=== PATIENT | male | born 1965 | race Caucasian/White ===

== ENCOUNTER 2020-10-19 17:55 | Emergency (ER) | payer BC ==
--- NOTE | 2020-10-19 18:19 | EDM.PDOC ---
ED HPI GENERAL MEDICAL PROBLEM - General Chief Complaint: Respiratory Problem Stated Complaint: CANT CATCH BREATH Time Seen by Provider: 10/19/20 18:00 Source of Information: Reports: Patient, Old Records, RN History Limitations: Reports: No Limitations - History of Present Illness INITIAL COMMENTS - FREE TEXT/NARRATIVE: 55 yo male is referred over from the walk-in clinic for SOB. Sx's have been present for about 5 days. Has not been seen for this before today. He states he's had this on and off in the past. He has not had a cough, chest pain, fever, leg pain/swelling, or wheezing. 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 He has lost about 25# over the past year or more, not intentional. He does have a cardiac hx. Onset: Gradual Onset Date: 10/14/20 Duration: Day(s): (5) Location: Reports: Chest Quality: Reports: Other (no pain) Severity: Mild Improves with: Reports: None Worsens with: Reports: None Context: Reports: Other (See HPI) Associated Symptoms: Reports: Other (fatigue) Treatments CONTENT MANAGER: Reports: Other (see below) (none) - Related Data Allergies Allergy/AdvReac Type Severity Reaction Status Date / Time No Known Allergies Allergy Verified 05/30/15 15:44 Home Meds: Home Meds Aspirin [Lisa Chewable Aspirin] 81 mg PO DAILY 10/19/20 [History] Cyclobenzaprine [Flexeril] 10 mg PO ASDIRECTED PRN 10/19/20 [History] Metoprolol Succinate [Toprol Xl] 50 mg PO DAILY 10/19/20 [History] atorvaSTATin [Lipitor] 40 mg PO DAILY 10/19/20 [History] lisinopriL [Lisinopril] 40 mg PO DAILY 10/19/20 [History] Past Medical History Cardiovascular History: Reports: Hypertension ED ROS GENERAL - Review of Systems Review Of Systems: See Below Constitutional: Reports: Fatigue. Denies: Fever, Chills, Diaphoresis HEENT: Reports: No Symptoms Respiratory: Reports: Shortness of Breath. Denies: Wheezing, Cough, Sputum, Hemoptysis Cardiovascular: Reports: No Symptoms. Denies: Chest Pain Endocrine: Reports: No Symptoms GI/Abdominal: Reports: No Symptoms : Reports: No Symptoms Musculoskeletal: Reports: No Symptoms Skin: Reports: No Symptoms Neurological: Reports: No Symptoms Psychiatric: Reports: No Symptoms ED EXAM, GENERAL - Physical Exam Exam: See Below Exam Limited By: No Limitations General Appearance: Alert, WD/WN, No Apparent Distress, Thin Eye Exam: Bilateral Eye: Normal Inspection, PERRL Ears: Normal External Exam, Normal Canal, Hearing Grossly Normal, Normal TMs Ear Exam: Bilateral Ear: Auricle Normal, Canal Normal, TM normal Nose: Normal Inspection, No Blood Throat/Mouth: Normal Inspection, Normal Lips, Normal Oropharynx, Normal Voice, No Airway Compromise Head: Atraumatic, Normocephalic Neck: Normal Inspection Respiratory/Chest: No Respiratory Distress, Lungs Clear, Normal Breath Sounds, No Accessory Muscle Use Cardiovascular: Regular Rate, Rhythm, No Edema, Tachycardia GI/Abdominal: Normal Bowel Sounds, Soft, Non-Tender, No Distention Back Exam: Normal Inspection. No: CVA Tenderness (R), CVA Tenderness (L) Extremities: Normal Inspection, Normal Range of Motion, Non-Tender, No Pedal Edema. No: Pedal Edema Neurological: Alert, Oriented, CN II-XII Intact, Normal Cognition, No Motor/Sensory Deficits Psychiatric: Normal Affect, Normal Mood Skin Exam: Warm, Dry, Intact, Normal Color, No Rash Course - Vital Signs Last Recorded V/S: Last Vital Signs Temp 36.1 C 10/19/20 18:05 Pulse 84 10/19/20 20:30 Resp 16 10/19/20 20:30 BP 127/82 10/19/20 20:30 Pulse Ox 100 10/19/20 20:30 - Orders/Labs/Meds Orders: Active Orders 24 hr Category Date Time Status Chest 2V [CR] Stat Exams 10/19/20 18:13 Taken EKG 12 Lead [EK] Routine Ther 10/19/20 19:02 Ordered Labs: Laboratory Tests 10/19/20 10/19/20 10/19/20 Range/Units 18:40 18:40 18:40 WBC 4.7 (3.2-10.1) x10-3/uL RBC 4.50 (3.90-5.90) x10(6)uL Hgb 15.2 (12.9-17.7) g/dL Hct 44.4 (38.3-50.1) % MCV 98.5 (80.8-98.7) fL MCH 33.8 H (27.0-33.3) pg MCHC 34.3 (28.7-35.3) g/dL RDW 13.9 (12.4-15.0) % Plt Count 233 (117-477) x10(3)uL D-Dimer, Quantitative 0.40 (0.0-0.59) mg/LFEU Sodium 141 (135-145) mmol/L Potassium 4.6 (3.5-5.3) mmol/L Chloride 103 (100-110) mmol/L Carbon Dioxide 22 (21-32) mmol/L BUN 44 H D (7-18) mg/dL Creatinine 1.8 H (0.70-1.30) mg/dL Est Cr Clr Drug Dosing TNP Estimated GFR (MDRD) 39 L (>60) BUN/Creatinine Ratio 24.4 H (9-20) Glucose 139 H (80-116) mg/dL Hemoglobin A1c (<5.7) % Calcium 8.5 L (8.6-10.2) mg/dL Total Bilirubin 1.0 (0.1-1.3) mg/dL AST 332 H* D (5-25) IU/L ALT 195 H* D (12-36) U/L Alkaline Phosphatase 130 H (56-112) IU/L Troponin I (4.0-60.3) pg/mL Total Protein 6.9 (6.0-8.0) g/dL Albumin 3.6 (3.5-5.2) g/dL Globulin 3.3 g/dL Albumin/Globulin Ratio 1.1 TSH, Ultra Sensitive (0.36-3.74) IU/mL Urine Color (YELLOW) Urine Appearance (CLEAR) Urine pH (5.0-6.5) Ur Specific [place] (1.010-1.025) Urine Protein (NEGATIVE) mg/dL Urine Glucose (UA) (NORMAL) mg/dL Urine Ketones (NEGATIVE) mg/dL Urine Occult Blood (NEGATIVE) Urine Nitrite (NEGATIVE) Urine Bilirubin (NEGATIVE) Urine Urobilinogen (NEGATIVE) mg/dL Ur Leukocyte Esterase (NEGATIVE) Urine RBC (0-5) Urine WBC (0-5) Ur Squamous Epith Cells (NS,R,O) Urine Bacteria (NS) Urine Opiates Screen (NEGATIVE) Ur Buprenorphine Scrn (NEGATIVE) Ur Oxycodone Screen (NEGATIVE) Urine Methadone Screen (NEGATIVE) Ur Propoxyphene Screen (NEGATIVE) Ur Barbiturates Screen (NEGATIVE) Ur Tricyclics Screen (NEGATIVE) Ur Phencyclidine Scrn (NEGATIVE) Ur Amphetamine Screen (NEGATIVE) U Methamphetamines Scrn (NEGATIVE) U Benzodiazepines Scrn (NEGATIVE) U Cocaine Metab Screen (NEGATIVE) U Marijuana (THC) Screen (NEGATIVE) SARS-CoV-2 RNA (PRIETO) (NEGATIVE) 10/19/20 10/19/20 10/19/20 Range/Units 18:40 18:40 18:42 WBC (3.2-10.1) x10-3/uL RBC (3.90-5.90) x10(6)uL Hgb (12.9-17.7) g/dL Hct (38.3-50.1) % MCV (80.8-98.7) fL MCH (27.0-33.3) pg MCHC (28.7-35.3) g/dL RDW (12.4-15.0) % Plt Count (117-477) x10(3)uL D-Dimer, Quantitative (0.0-0.59) mg/LFEU Sodium (135-145) mmol/L Potassium (3.5-5.3) mmol/L Chloride (100-110) mmol/L Carbon Dioxide (21-32) mmol/L BUN (7-18) mg/dL Creatinine (0.70-1.30) mg/dL Est Cr Clr Drug Dosing Estimated GFR (MDRD) (>60) BUN/Creatinine Ratio (9-20) Glucose (80-116) mg/dL Hemoglobin A1c 5.7 (<5.7) % Calcium (8.6-10.2) mg/dL Total Bilirubin (0.1-1.3) mg/dL AST (5-25) IU/L ALT (12-36) U/L Alkaline Phosphatase (56-112) IU/L Troponin I 5.4 (4.0-60.3) pg/mL Total Protein (6.0-8.0) g/dL Albumin (3.5-5.2) g/dL Globulin g/dL Albumin/Globulin Ratio TSH, Ultra Sensitive 4.98 H (0.36-3.74) IU/mL Urine Color Yellow (YELLOW) Urine Appearance Clear (CLEAR) Urine pH 5.0 (5.0-6.5) Ur Specific [place] 1.020 (1.010-1.025) Urine Protein Negative (NEGATIVE) mg/dL Urine Glucose (UA) Normal (NORMAL) mg/dL Urine Ketones 15 H (NEGATIVE) mg/dL Urine Occult Blood Negative (NEGATIVE) Urine Nitrite Negative (NEGATIVE) Urine Bilirubin Negative (NEGATIVE) Urine Urobilinogen Normal (NEGATIVE) mg/dL Ur Leukocyte Esterase Negative (NEGATIVE) Urine RBC Not seen (0-5) Urine WBC 0-5 (0-5) Ur Squamous Epith Cells Few H (NS,R,O) Urine Bacteria Few H (NS) Urine Opiates Screen (NEGATIVE) Ur Buprenorphine Scrn (NEGATIVE) Ur Oxycodone Screen (NEGATIVE) Urine Methadone Screen (NEGATIVE) Ur Propoxyphene Screen (NEGATIVE) Ur Barbiturates Screen (NEGATIVE) Ur Tricyclics Screen (NEGATIVE) Ur Phencyclidine Scrn (NEGATIVE) Ur Amphetamine Screen (NEGATIVE) U Methamphetamines Scrn (NEGATIVE) U Benzodiazepines Scrn (NEGATIVE) U Cocaine Metab Screen (NEGATIVE) U Marijuana (THC) Screen (NEGATIVE) SARS-CoV-2 RNA (PRIETO) (NEGATIVE) 10/19/20 10/19/20 Range/Units 18:44 19:15 WBC (3.2-10.1) x10-3/uL RBC (3.90-5.90) x10(6)uL Hgb (12.9-17.7) g/dL Hct (38.3-50.1) % MCV (80.8-98.7) fL MCH (27.0-33.3) pg MCHC (28.7-35.3) g/dL RDW (12.4-15.0) % Plt Count (117-477) x10(3)uL D-Dimer, Quantitative (0.0-0.59) mg/LFEU Sodium (135-145) mmol/L Potassium (3.5-5.3) mmol/L Chloride (100-110) mmol/L Carbon Dioxide (21-32) mmol/L BUN (7-18) mg/dL Creatinine (0.70-1.30) mg/dL Est Cr Clr Drug Dosing Estimated GFR (MDRD) (>60) BUN/Creatinine Ratio (9-20) Glucose (80-116) mg/dL Hemoglobin A1c (<5.7) % Calcium (8.6-10.2) mg/dL Total Bilirubin (0.1-1.3) mg/dL AST (5-25) IU/L ALT (12-36) U/L Alkaline Phosphatase (56-112) IU/L Troponin I (4.0-60.3) pg/mL Total Protein (6.0-8.0) g/dL Albumin (3.5-5.2) g/dL Globulin g/dL Albumin/Globulin Ratio TSH, Ultra Sensitive (0.36-3.74) IU/mL Urine Color (YELLOW) Urine Appearance (CLEAR) Urine pH (5.0-6.5) Ur Specific [place] (1.010-1.025) Urine Protein (NEGATIVE) mg/dL Urine Glucose (UA) (NORMAL) mg/dL Urine Ketones (NEGATIVE) mg/dL Urine Occult Blood (NEGATIVE) Urine Nitrite (NEGATIVE) Urine Bilirubin (NEGATIVE) Urine Urobilinogen (NEGATIVE) mg/dL Ur Leukocyte Esterase (NEGATIVE) Urine RBC (0-5) Urine WBC (0-5) Ur Squamous Epith Cells (NS,R,O) Urine Bacteria (NS) Urine Opiates Screen Negative (NEGATIVE) Ur Buprenorphine Scrn Negative (NEGATIVE) Ur Oxycodone Screen Negative (NEGATIVE) Urine Methadone Screen Negative (NEGATIVE) Ur Propoxyphene Screen Negative (NEGATIVE) Ur Barbiturates Screen Negative (NEGATIVE) Ur Tricyclics Screen Negative (NEGATIVE) Ur Phencyclidine Scrn Negative (NEGATIVE) Ur Amphetamine Screen Negative (NEGATIVE) U Methamphetamines Scrn Negative (NEGATIVE) U Benzodiazepines Scrn Negative (NEGATIVE) U Cocaine Metab Screen Negative (NEGATIVE) U Marijuana (THC) Screen Negative (NEGATIVE) SARS-CoV-2 RNA (PRIETO) Negative (NEGATIVE) Meds: Medications Discontinued Medications Generic Name Dose Route Start Last Admin Trade Name Freq PRN Reason Stop Dose Admin Sodium Chloride 1,000 mls @ 999 mls/hr 10/19/20 19:45 10/19/20 19:45 Normal Saline IV 999 mls/hr ASDIRECTED SIMONE Administration - Radiology Interpretation Free Text/Narrative:: CXR-neg - Re-Assessments/Exams Free Text/Narrative Re-Assessment/Exam: 10/20/20 17:58h Patient was still in the dept at the change of shift. Dr. Escamilla took over care and the responsibility of completing this chart. He elected to start a new chart so this is as far as I can complete. Departure - Departure Time of Disposition: 00:00 Disposition: Home, Self-Care 01 Condition: Fair Clinical Impression: Shortness of breath, Weight loss Fatigue Qualifiers: Fatigue type: unspecified Qualified Code(s): R53.83 - Other fatigue - Discharge Information Instructions: Alcoholic Liver Disease, Dehydration, Adult, [id number] Referrals: Samir Navarro MD [Primary Care Provider] - 1 Day Forms: ED Department Discharge - My Orders Last 24 Hours: My Active Orders 10/19/20 18:13 Chest 2V [CR] Stat 10/19/20 19:02 EKG 12 Lead [EK] Routine - Assessment/Plan Last 24 Hours: My Active Orders 10/19/20 18:13 Chest 2V [CR] Stat 10/19/20 19:02 EKG 12 Lead [EK] Routine
[2020-10-19] MEDS ORDERED: Sodium Chloride 0.9% 1,000 ML IV SCH (19:45)
--- NOTE | 2020-10-19 19:45 | PCM.EKG ---
#1 Interpretation EKG Date: 10/19/20 Rhythm: NSR [place]: Normal P-Wave: Present Comparison: NA - No Prior EKG
[2020-10-19 19:50] LABS: HEMOGLOBIN A1C 5.7 % (<5.7)
--- NOTE | 2020-10-19 20:54 | ER ---
DATE SEEN: 10/19/2020 CHIEF COMPLAINT: Weakness. HISTORY OF PRESENT ILLNESS: This is a 55-year-old male who came in because of weakness, tiredness, weight loss, symptoms lasting at least 2 to 3 weeks along with some shortness of breath. The shortness of breath has been present for about 5 days. He did not have any chest pain; neither did he have any leg swelling, fever, chills, or cough. PAST MEDICAL HISTORY: He had acute coronary syndrome in 2016 and had 1 stent placed. He also has hypertension. SOCIAL HISTORY: Admits to drinking alcohol daily. PHYSICAL EXAMINATION: GENERAL: When I examined him, he did not appear to be in any distress. VITAL SIGNS: Temperature 97.0, pulse 96, blood pressure is normal. CHEST: Clear. ABDOMEN: Soft. NEUROLOGIC: Normal. Mental status alert. LABORATORY DATA: Showed normal white cell count. Creatinine 1.8, and electrolytes were normal with the exception of BUN that was 44. AST was elevated at 332, ALT 195. UA was negative. Troponin was negative. EKG and chest x-ray were normal. IMPRESSION: 1. Shortness of breath. 2. Fatigue. 3. Weight loss. 4. Acute kidney injury. PLAN: I gave him 1 L of normal saline. The patient advised to see PCP tomorrow. /[id number] LISA/FAITH
[2020-10-19 23:16] VITALS: BP 127/82; PULSE 84
--- NOTE | 2020-10-20 18:03 | CR ---
INDICATION: Short of breath intermittently for five years. CHEST, TWO VIEWS: PA and lateral views of the chest 10/19/20 were compared with 08/07/18 and 05/30/15. The heart remains normal in size and shape. Mediastinum was unremarkable. Mild hypertrophic changes are noted of vertebral bodies anteriorly in the lower middle thoracic spine. A definite active infiltrate or effusion was not identified. Overlying EKG leads are noted. IMPRESSION: No acute process. MTDD
== END 2020-10-19 20:53 | disposition home or self-care (01) ==
LOC: FB.ED 17:55
DX: N17.9 Acute kidney failure, unspecified (principal); R06.02 Shortness of breath; R53.83 Other fatigue; I10 Essential (primary) hypertension; Z95.5 Presence of coronary angioplasty implant and graft; Z20.822 Contact with and (suspected) exposure to COVID-19
CPT/HCPCS: 36415; 71046; 80053; 80307; 81001; 83036; 84443; 84484; 85027; 85379; 87635; 93005; 99285; J7030; U0002

== ENCOUNTER 2020-10-21 10:52 | Emergency (ER) | payer BC ==
[2020-10-21] MEDS ORDERED: Ondansetron 4 MG Tab.DIS PO ONE (10:53)
--- NOTE | 2020-10-21 11:11 | EDM.PDOC ---
ED HPI GENERAL MEDICAL PROBLEM - General Chief Complaint: General Stated Complaint: SOB Time Seen by Provider: 10/21/20 11:10 Source of Information: Reports: Patient History Limitations: Reports: No Limitations - History of Present Illness INITIAL COMMENTS - FREE TEXT/NARRATIVE: 55-year-old male who reports for the past few months he has had intermittent episodes where he feels nauseated and has no appetite. He states that these only last for 1-2 days and then they seemed to go away and he feels better on other times it almost back to normal. On Saturday of this week, he began to feel nauseated and generally weak and the symptoms persisted not going away and he presented to the emergency department on July 20, 2019. His complaints were that he was nauseated and that he had had several episodes of vomiting and he had a poor appetite and he "did not feel well". He also felt short of breath. He denied any chest pain or abdominal pain or really anything for that matter. He did feel somewhat weak all over. He was seen in the emergency department and had blood tests performed which showed elevated LFTs (the patient is a somewhat heavy drinker and even with his "I drink too much"). He was given 1 bag of IV fluids and he felt improved after this and was discharged home. The following day, he had vomiting 3 and has persisted with vomiting, nausea, feelings of shortness of breath, generalized weakness and malaise. His symptoms really have not gone away and they seem to be worsening. That caused him to re-presented today for evaluation. He has only had vomiting times one today but really has not been eating or drinking much he does feel somewhat weak and dizzy when he stands. No has no pain. He would rate his pain as a 0/10. No fevers or chills. He has had no dysuria but he does report decreased urine output. He has had nothing to drink today nor any really to drink this week but the previous weekend he tells me that he did drink There are no other associated signs or symptoms. There are no other modifying factors. Onset: Other (10/17/2020) Duration: Constant Location: Reports: Other (No pain) Improves with: Reports: Rest Worsens with: Reports: Other (Activity), Movement Context: Reports: Other (As above.) Associated Symptoms: Reports: No Other Symptoms (Except as above.) Treatments SENIOR PRINCIPAL: Reports: Other (see below) (Nothing.) - Related Data Allergies Allergy/AdvReac Type Severity Reaction Status Date / Time No Known Allergies Allergy Verified 05/30/15 15:44 Home Meds: Home Meds Aspirin [Lisa Chewable Aspirin] 81 mg PO DAILY 10/19/20 [History] Cyclobenzaprine [Flexeril] 10 mg PO ASDIRECTED PRN 10/19/20 [History] Metoprolol Succinate [Toprol Xl] 50 mg PO DAILY 10/19/20 [History] atorvaSTATin [Lipitor] 40 mg PO DAILY 10/19/20 [History] lisinopriL [Lisinopril] 40 mg PO DAILY 10/19/20 [History] Ondansetron [Zofran ODT] 4 mg PO Q6H PRN #12 tab.dis 10/21/20 [Rx] Past Medical History Cardiovascular History: Reports: High Cholesterol, Hypertension, [place] Respiratory History: Reports: Asthma Musculoskeletal History: Reports: Back Pain, Chronic - Infectious Disease History Infectious Disease History: Reports: Chicken Pox - Past Surgical History Cardiovascular Surgical History: Reports: Coronary Artery Stent, Percutaneous Transluminal Angioplasty GI Surgical History: Reports: Appendectomy Social & Family History - Tobacco Use Tobacco Use Status *Q: Unknown Ever Used Tobacco ([place]) Second Hand Smoke Exposure: Yes - Caffeine Use Caffeine Use: Reports: Soda - Alcohol Use Alcohol Use History: Yes Alcohol Use Frequency: Daily - Living Situation & Occupation Living situation: Reports: Occupation: Employed (Owns and operates a liquor store) ED ROS GENERAL - Review of Systems Review Of Systems: See Below Constitutional: Denies: Fever, Chills HEENT: Denies: Nose Pain, Sinus Problem, Throat Pain, Throat Swelling Respiratory: Reports: Shortness of Breath. Denies: Cough Cardiovascular: Reports: Lightheadedness. Denies: Chest Pain GI/Abdominal: Reports: Nausea, Vomiting : Denies: Dysuria, Hematuria Musculoskeletal: Denies: Neck Pain, Arm Pain, Back Pain Skin: Denies: Diaphoresis, Rash Neurological: Reports: Dizziness Hematologic/Lymphatic: Denies: Easy Bleeding, Easy Bruising ED EXAM, GENERAL - Physical Exam Exam: See Below General Appearance: Alert, WD/WN, Anxious, Mild Distress, Other (Is hyperventilating somewhat. Nontoxic appearing) Eye Exam: Bilateral Eye: EOMI, Normal Inspection, PERRL Ears: Normal External Exam, Hearing Grossly Normal Ear Exam: Bilateral Ear: Auricle Normal Nose: Normal Inspection, Normal Mucosa, No Blood Throat/Mouth: Normal Voice, No Airway Compromise, Other (Dry mucous membranes. No ketotic breath) Head: Atraumatic, Normocephalic Neck: Normal Inspection, Supple, Non-Tender, Full Range of Motion Respiratory/Chest: No Respiratory Distress, Lungs Clear, Normal Breath Sounds, No Accessory Muscle Use, Chest Non-Tender Cardiovascular: Normal Peripheral Pulses, Regular Rate, Rhythm, No Edema, No Murmur Peripheral Pulses: 2+: Radial (L), Radial (R), Dorsalis Pedis (L), Dorsalis Pedis (R) GI/Abdominal: Normal Bowel Sounds, Soft, Non-Tender, No Organomegaly, No Mass Back Exam: Normal Inspection, Full Range of Motion Extremities: Normal Inspection, Normal Range of Motion, Non-Tender, No Pedal Edema, Normal Capillary Refill Neurological: Alert, Oriented, CN II-XII Intact, Normal Cognition, No Motor/Sensory Deficits Psychiatric: Anxious Skin Exam: Warm, Dry, Intact, Normal Color, No Rash #1 Interpretation EKG Date: 10/21/20 Time: 11:44 Rhythm: NSR Rate (Beats/Min): 100 [place]: Normal P-Wave: Present QRS: Normal ST-T: Normal QT: Prolonged (Slightly prolonged QTc.) Comparison: No Change (No change from EKG performed on 10/19/2020.) Course - Vital Signs Last Recorded V/S: Last Vital Signs Temp 36.6 C 10/21/20 10:53 Pulse 109 H 10/21/20 10:53 Resp 20 10/21/20 10:53 BP 103/75 10/21/20 10:53 Pulse Ox 100 10/21/20 10:53 - Orders/Labs/Meds Orders: Active Orders 24 hr Category Date Time Status HEPATITIS PANEL (4) Urgent Lab 10/21/20 17:40 Received Peripheral IV Insertion Adult [OM.PC] Routine Oth 10/21/20 11:40 Ordered EKG 12 Lead [EK] Routine Ther 10/21/20 11:40 Ordered Labs: Laboratory Tests 10/21/20 10/21/20 10/21/20 Range/Units 11:40 12:05 12:05 WBC 4.7 (3.2-10.1) x10-3/uL RBC 4.13 (3.90-5.90) x10(6)uL Hgb 13.9 (12.9-17.7) g/dL Hct 41.3 (38.3-50.1) % MCV 100.1 H (80.8-98.7) fL MCH 33.7 H (27.0-33.3) pg MCHC 33.6 (28.7-35.3) g/dL RDW 13.9 (12.4-15.0) % Plt Count 152 (117-477) x10(3)uL MPV 6.9 (6.7-11.0) fL Neut % (Auto) 74.9 H (40.3-71.8) % Lymph % (Auto) 16.1 (15.8-45.3) % [place] % (Auto) 7.8 (5.5-15.2) % Eos % (Auto) 0.3 (0.1-6.8) % Baso % (Auto) 0.9 (0.3-3.8) % Neut # (Auto) 3.5 (1.7-6.9) x10-3/uL Lymph # (Auto) 0.8 (0.5-4.5) x10-3/uL [place] # (Auto) 0.4 (0.0-1.2) x10-3/uL Eos # (Auto) 0.0 (0.0-0.6) x10-3/uL Baso # (Auto) 0.0 (0.0-0.3) x10-3/uL PT (9.0-11.1) sec INR (1.00-1.24) APTT (24.4-33.2) SECONDS D-Dimer, Quantitative 0.29 (0.0-0.59) mg/LFEU POC VBG pH (7.32-7.43) pH Units POC VBG pCO2 (41-51) mmHg POC VBG HCO3 (22-29) mmol/L VBG Base Excess (-2 - 3+) mmol/L O2 Delivery Device Oxygen Flow Rate LPM Sodium (135-145) mmol/L Potassium (3.5-5.3) mmol/L Chloride (100-110) mmol/L Carbon Dioxide (21-32) mmol/L BUN (7-18) mg/dL Creatinine (0.70-1.30) mg/dL Est Cr Clr Drug Dosing mL/min Estimated GFR (MDRD) (>60) BUN/Creatinine Ratio (9-20) Glucose (80-116) mg/dL Lactic Acid (0.4-2.0) mmol/L Calcium (8.6-10.2) mg/dL Magnesium (1.8-2.5) mg/dL Total Bilirubin (0.1-1.3) mg/dL AST (5-25) IU/L ALT (12-36) U/L Alkaline Phosphatase (56-112) IU/L Troponin I (4.0-60.3) pg/mL Total Protein (6.0-8.0) g/dL Albumin (3.5-5.2) g/dL Globulin g/dL Albumin/Globulin Ratio Lipase (73-393) U/L Urine Color Yellow (YELLOW) Urine Appearance Clear (CLEAR) Urine pH 5.0 (5.0-6.5) Ur Specific [place] 1.020 (1.010-1.025) Urine Protein Negative (NEGATIVE) mg/dL Urine Glucose (UA) Normal (NORMAL) mg/dL Urine Ketones Negative (NEGATIVE) mg/dL Urine Occult Blood Negative (NEGATIVE) Urine Nitrite Negative (NEGATIVE) Urine Bilirubin Small H (NEGATIVE) Urine Urobilinogen 1 H (NEGATIVE) mg/dL Ur Leukocyte Esterase Negative (NEGATIVE) U Hyaline Cast (Auto) Moderate H (NS) Urine RBC 0-5 (0-5) Urine WBC 0-5 (0-5) Ur Squamous Epith Cells Few H (NS,R,O) Urine Bacteria Occasional H (NS) Fine Granular Casts Few H (NS) Urine Mucus Many H (NS) Ethyl Alcohol (<0.03) % 10/21/20 10/21/20 10/21/20 Range/Units 12:05 12:05 12:05 WBC (3.2-10.1) x10-3/uL RBC (3.90-5.90) x10(6)uL Hgb (12.9-17.7) g/dL Hct (38.3-50.1) % MCV (80.8-98.7) fL MCH (27.0-33.3) pg MCHC (28.7-35.3) g/dL RDW (12.4-15.0) % Plt Count (117-477) x10(3)uL MPV (6.7-11.0) fL Neut % (Auto) (40.3-71.8) % Lymph % (Auto) (15.8-45.3) % Marion % (Auto) (5.5-15.2) % Eos % (Auto) (0.1-6.8) % Baso % (Auto) (0.3-3.8) % Neut # (Auto) (1.7-6.9) x10-3/uL Lymph # (Auto) (0.5-4.5) x10-3/uL [place] # (Auto) (0.0-1.2) x10-3/uL Eos # (Auto) (0.0-0.6) x10-3/uL Baso # (Auto) (0.0-0.3) x10-3/uL PT (9.0-11.1) sec INR (1.00-1.24) APTT (24.4-33.2) SECONDS D-Dimer, Quantitative (0.0-0.59) mg/LFEU POC VBG pH (7.32-7.43) pH Units POC VBG pCO2 (41-51) mmHg POC VBG HCO3 (22-29) mmol/L VBG Base Excess (-2 - 3+) mmol/L O2 Delivery Device Oxygen Flow Rate LPM Sodium 136 (135-145) mmol/L Potassium 3.9 (3.5-5.3) mmol/L Chloride 100 (100-110) mmol/L Carbon Dioxide < 5 L* (21-32) mmol/L BUN 26 H D (7-18) mg/dL Creatinine 1.5 H (0.70-1.30) mg/dL Est Cr Clr Drug Dosing 59.97 mL/min Estimated GFR (MDRD) 48 L (>60) BUN/Creatinine Ratio 17.3 (9-20) Glucose 166 H (80-116) mg/dL Lactic Acid 1.9 (0.4-2.0) mmol/L Calcium 8.4 L (8.6-10.2) mg/dL Magnesium 1.5 L (1.8-2.5) mg/dL Total Bilirubin 2.7 H (0.1-1.3) mg/dL AST 409 H* D (5-25) IU/L ALT 257 H* D (12-36) U/L Alkaline Phosphatase 128 H (56-112) IU/L Troponin I 5.4 (4.0-60.3) pg/mL Total Protein 6.7 (6.0-8.0) g/dL Albumin 3.6 (3.5-5.2) g/dL Globulin 3.1 g/dL Albumin/Globulin Ratio 1.2 Lipase 140 (73-393) U/L Urine Color (YELLOW) Urine Appearance (CLEAR) Urine pH (5.0-6.5) Ur Specific [place] (1.010-1.025) Urine Protein (NEGATIVE) mg/dL Urine Glucose (UA) (NORMAL) mg/dL Urine Ketones (NEGATIVE) mg/dL Urine Occult Blood (NEGATIVE) Urine Nitrite (NEGATIVE) Urine Bilirubin (NEGATIVE) Urine Urobilinogen (NEGATIVE) mg/dL Ur Leukocyte Esterase (NEGATIVE) U Hyaline Cast (Auto) (NS) Urine RBC (0-5) Urine WBC (0-5) Ur Squamous Epith Cells (NS,R,O) Urine Bacteria (NS) Fine Granular Casts (NS) Urine Mucus (NS) Ethyl Alcohol < 0.03 (<0.03) % 10/21/20 10/21/20 Range/Units 12:38 14:22 WBC (3.2-10.1) x10-3/uL RBC (3.90-5.90) x10(6)uL Hgb (12.9-17.7) g/dL Hct (38.3-50.1) % MCV (80.8-98.7) fL MCH (27.0-33.3) pg MCHC (28.7-35.3) g/dL RDW (12.4-15.0) % Plt Count (117-477) x10(3)uL MPV (6.7-11.0) fL Neut % (Auto) (40.3-71.8) % Lymph % (Auto) (15.8-45.3) % [place] % (Auto) (5.5-15.2) % Eos % (Auto) (0.1-6.8) % Baso % (Auto) (0.3-3.8) % Neut # (Auto) (1.7-6.9) x10-3/uL Lymph # (Auto) (0.5-4.5) x10-3/uL [place] # (Auto) (0.0-1.2) x10-3/uL Eos # (Auto) (0.0-0.6) x10-3/uL Baso # (Auto) (0.0-0.3) x10-3/uL PT 11.8 H (9.0-11.1) sec INR 1.10 (1.00-1.24) APTT 23.1 L (24.4-33.2) SECONDS D-Dimer, Quantitative (0.0-0.59) mg/LFEU POC VBG pH 7.50 H (7.32-7.43) pH Units POC VBG pCO2 26 L (41-51) mmHg POC VBG HCO3 20 L (22-29) mmol/L VBG Base Excess -1 (-2 - 3+) mmol/L O2 Delivery Device Room air Oxygen Flow Rate 0 LPM Sodium (135-145) mmol/L Potassium (3.5-5.3) mmol/L Chloride (100-110) mmol/L Carbon Dioxide (21-32) mmol/L BUN (7-18) mg/dL Creatinine (0.70-1.30) mg/dL Est Cr Clr Drug Dosing mL/min Estimated GFR (MDRD) (>60) BUN/Creatinine Ratio (9-20) Glucose (80-116) mg/dL Lactic Acid (0.4-2.0) mmol/L Calcium (8.6-10.2) mg/dL Magnesium (1.8-2.5) mg/dL Total Bilirubin (0.1-1.3) mg/dL AST (5-25) IU/L ALT (12-36) U/L Alkaline Phosphatase (56-112) IU/L Troponin I (4.0-60.3) pg/mL Total Protein (6.0-8.0) g/dL Albumin (3.5-5.2) g/dL Globulin g/dL Albumin/Globulin Ratio Lipase (73-393) U/L Urine Color (YELLOW) Urine Appearance (CLEAR) Urine pH (5.0-6.5) Ur Specific [place] (1.010-1.025) Urine Protein (NEGATIVE) mg/dL Urine Glucose (UA) (NORMAL) mg/dL Urine Ketones (NEGATIVE) mg/dL Urine Occult Blood (NEGATIVE) Urine Nitrite (NEGATIVE) Urine Bilirubin (NEGATIVE) Urine Urobilinogen (NEGATIVE) mg/dL Ur Leukocyte Esterase (NEGATIVE) U Hyaline Cast (Auto) (NS) Urine RBC (0-5) Urine WBC (0-5) Ur Squamous Epith Cells (NS,R,O) Urine Bacteria (NS) Fine Granular Casts (NS) Urine Mucus (NS) Ethyl Alcohol (<0.03) % Meds: Medications Discontinued Medications Generic Name Dose Route Start Last Admin Trade Name Freq PRN Reason Stop Dose Admin Sodium Chloride 1,000 mls @ 999 mls/hr 10/21/20 11:42 10/21/20 12:15 Normal Saline IV 10/21/20 12:42 999 mls/hr .BOLUS ONE Administration Sodium Chloride 1,000 mls @ 150 mls/hr 10/21/20 11:45 10/21/20 15:19 Normal Saline IV 150 mls/hr ASDIRECTED SIMONE Administration Magnesium Sulfate 2 gm/ Premix 50 mls @ 50 mls/hr 10/21/20 14:05 10/21/20 15:23 IV 10/21/20 15:04 50 mls/hr ONETIME ONE Administration Sodium Chloride 1,000 mls @ 999 mls/hr 10/21/20 14:23 10/21/20 14:06 Normal Saline IV 10/21/20 15:23 999 mls/hr .BOLUS ONE Administration Lorazepam 1 mg 10/21/20 13:08 10/21/20 14:06 Lorazepam 2 Mg/Ml Sdv IVPUSH 10/21/20 13:09 1 mg ONETIME ONE Administration Ondansetron HCl 4 mg 10/21/20 11:42 10/21/20 12:15 Ondansetron 4 Mg/2 Ml Sdv IVPUSH 10/21/20 11:43 4 mg ONETIME ONE Administration Sodium Chloride 10 ml 10/21/20 11:40 Sodium Chloride 0.9% 10 Ml Syringe FLUSH ASDIRECTED PRN Keep Vein Open - Re-Assessments/Exams Free Text/Narrative Re-Assessment/Exam: 10/21/20 14:25: The patient's bicarbonate on the chemistry panel came back less than 5 according to the laboratory staff. This was attempted and came back at 11. The venous gas analyzer however found that the bicarbonate was 28. I was told that this was secondary to the patient's specimen being like panic We attempted to rectify this by doing a lactic acid and that test could also not be performed secondary to the lipemia. At this point I was told that we could send the specimen to [place] to repeat the CMP and to perform the lactic acid. Discussed this with the patient and with his and will plan on doing that. In the meantime I will give him another liter of normal saline as a bolus as he has not urinated as yet. 10/21/20 17:15: The specimen that was used was the specimen in which the bicarbonate was 11 here and the results from [place] was a bicarbonate of 18 and a BUN of 25 and a creatinine of 1.2. AST was 520 and ALT was 236 with a total bilirubin of 2.9. The lactic acid was normal. The patient has received 2 L of normal saline as a bolus. 10/21/20 17:25: Patient feels much improved. He does have to urinate now. He has remained vitally stable. He does not feel nauseated anymore and actually feels like he might want something to eat. I will order a hepatitis profile and I will plan on discharging the patient. I have us with the patient that he should not drink alcohol and he should completely abstain from alcohol. I will give him a prescription of Zofran for his nausea. He should follow-up with his primary provider next week for recheck. And reasons for return to the emergency department were discussed with the patient and with his all the patient was in the emergency department and were detailed in the patient's discharge instructions. Departure - Departure Time of Disposition: 17:30 Disposition: Home, Self-Care 01 Condition: Good Clinical Impression: Alcohol abuse, Moderate dehydration, Hepatitis - Discharge Information Prescriptions: Ondansetron [Zofran ODT] 4 mg PO Q6H PRN #12 tab.dis PRN Reason: Nausea/Vomiting Instructions: Dehydration, Adult, [id number] Referrals: Samir Navarro MD [Primary Care Provider] - Forms: ED Department Discharge Additional Instructions: You were dehydrated. We have corrected this somewhat by giving you IV fluids. You also have elevated over enzymes and I feel that this is related to your excessive alcohol use. Your shortness of breath, poor appetite, nausea and vomiting and feeling poorly probably related to your alcohol use and the effects that it has had on your body. You should completely abstain from alcohol for now. You need to follow-up with your primary doctor next week for recheck. I did also send a test to check for hepatitis. You need to take a multivitamin every day. Increase your fluid intake. I have given you a prescription of antinausea medication (Zofran 4 mg ODT). Back to the emergency department for persisting vomiting, worsening weakness, high fever or any other concerning signs or symptoms. Sepsis Event Note (ED) - Focused Exam Vital Signs: Vital Signs Temp Pulse Resp BP Pulse Ox 10/21/20 10:53 36.6 C 109 H 20 103/75 100 - My Orders Last 24 Hours: My Active Orders 10/21/20 11:40 Peripheral IV Insertion Adult [OM.PC] Routine EKG 12 Lead [EK] Routine 10/21/20 17:40 HEPATITIS PANEL (4) Urgent - Assessment/Plan Last 24 Hours: My Active Orders 10/21/20 11:40 Peripheral IV Insertion Adult [OM.PC] Routine EKG 12 Lead [EK] Routine 10/21/20 17:40 HEPATITIS PANEL (4) Urgent
[2020-10-21 11:30] VITALS: BP 103/75; PULSE 109
[2020-10-21] MEDS ORDERED: Sodium Chloride 0.9% 10 ML Syringe FLUSH PRN (11:40)
[2020-10-21] MEDS ORDERED: Ondansetron 4 MG/2 ML SDV IVPUSH ONE (11:42)
[2020-10-21] MEDS ORDERED: Sodium Chloride 0.9% 1,000 ML IV ONE ×2 (11:42→14:23)
[2020-10-21 12:41] LABS: BASE EXCESS VENOUS,POC -1 mmol/L (-2 - 3+); PCO2 VENOUS,POC 26 mmHg (41-51)
[2020-10-21] MEDS ORDERED: LORazepam 2 MG/ML SDV IVPUSH ONE (13:08)
[2020-10-21] MEDS ORDERED: Magnesium Sulfate/Water 2 GM in Premix Bag 1 BAG IV ONE (14:05)
[2020-10-21] MEDS: Sodium Chloride 0.9% 1,000 ML IV SCH ×2 (14:06→15:19)
[2020-10-25 11:12] LABS: HBSAG SCREEN Negative (Negative); HEP A AB, IGM Negative (Negative); HEP B CORE AB, IGM Negative (Negative); HEP C VIRUS AB <0.1 s/co ratio (0.0-0.9)
== END 2020-10-21 18:01 | disposition home or self-care (01) ==
LOC: FB.ED 10:52
DX: E86.0 Dehydration (principal); K75.9 Inflammatory liver disease, unspecified; F10.10 Alcohol abuse, uncomplicated; E78.00 Pure hypercholesterolemia, unspecified; I10 Essential (primary) hypertension; I25.2 Old myocardial infarction; J45.909 Unspecified asthma, uncomplicated; Y90.0 Blood alcohol level of less than 20 mg/100 ml; Z77.22 Contact with and (suspected) exposure to environmental tobacco smoke (acute) (chronic); Z79.82 Long term (current) use of aspirin; Z79.899 Other long term (current) drug therapy
CPT/HCPCS: 36415; 80053; 80074; 80307; 81001; 83605; 83690; 83735; 84484; 85025; 85379; 85610; 85730; 93005; 96365; 96375; 99285; A9270; J2060; J2405; J3475; J7030